=== PATIENT | female | born 1995 | race African-American/Black ===

== ENCOUNTER 2018-07-14 14:28 | Emergency (ER) | payer SELFPAY ==
[~2018-07-14] VITALS: Ht 160 cm; Wt 59.0 kg
[2018-07-14 15:28] VITALS: BP 124/62
--- NOTE | 2018-07-14 15:51 | PHYS DOC ---
Past Medical History Past Medical History: Ovarian Cyst Past Surgical History: Other Additional Past Surgical Histo: OVARIAN CYST Alcohol Use: None Drug Use: None Adult General Chief Complaint Chief Complaint: ABDOMINAL PAIN HPI HPI Patient is a 23 year old female with no significant medical history who presents to the ED today complaining of 7 out of 10 bilateral intermittent pelvic pain that has been going on for 2 weeks. She is also complaining of vaginal spotting for 2 weeks. Patient denies anything exacerbating or relieving her pain. She states she has history of ovarian cyst. Patient denies any chance she is , denies being on any medications especially hormones. Denies any concerns for STDs. Review of Systems Review of Systems Constitutional: Denies fever or chills [] Eyes: Denies change in visual acuity, redness, or eye pain [] HENT: Denies nasal congestion or sore throat [] Respiratory: Denies cough or shortness of breath [] Cardiovascular: No additional information not addressed in HPI [] GI: Reports pelvic pain with vaginal spotting, denies nausea, vomiting, bloody stools or diarrhea [] : Denies dysuria or hematuria [] Musculoskeletal: Denies back pain or joint pain [] Integument: Denies rash or skin lesions [] Neurologic: Denies headache, focal weakness or sensory changes [] All other systems were reviewed and found to be within normal limits, except as documented in this note. Allergies Allergies Allergies Coded Allergies Type Severity Reaction Last Updated Verified No Known Drug Allergies 07/14/18 No Physical Exam Physical Exam Constitutional: Well developed, well nourished, no acute distress, non-toxic appearance. [] HENT: Normocephalic, atraumatic, bilateral external ears normal, oropharynx moist, no oral exudates, nose normal. [] Eyes: PERRLA, EOMI, conjunctiva normal, no discharge. [] Neck: Normal range of motion, no tenderness, supple, no stridor. [] Cardiovascular:Heart rate regular rhythm, no murmur [] Lungs & Thorax: Bilateral breath sounds clear to auscultation [] Abdomen: Bowel sounds normal, soft, no tenderness, no masses, no pulsatile masses. [] Pelvic exam External pelvic appears normal, cervix is visualized, closed, no CMT, trace amount of bright red blood in the vaginal vault. No adnexal tenderness. Skin: Warm, dry, no erythema, no rash. [] Back: No tenderness, no CVA tenderness. [] Extremities: No tenderness, no cyanosis, no clubbing, ROM intact, no edema. [] Neurologic: Alert and oriented X 3, normal motor function, normal sensory function, no focal deficits noted. [] Psychologic: Affect normal, judgement normal, mood normal. [] Current Patient Data Vital Signs Vital Signs Date Time Temp Pulse Resp B/P (MAP) Pulse Ox O2 Delivery O2 Flow Rate FiO2 07/14/18 15:11 98.1 64 16 119/67 (84) 100 Room Air 98.1 Lab Values Laboratory Tests Test 07/14/18 15:13 07/14/18 15:17 07/14/18 15:53 Urine Collection Type Void Urine Color Yellow Urine Clarity Clear Urine pH 8.0 Urine Specific Dexter 1.020 Urine Protein Negative mg/dL (NEG-TRACE) Urine Glucose (UA) Negative mg/dL (NEG) Urine Ketones (Stick) Negative mg/dL (NEG) Urine Blood Large (NEG) Urine Nitrite Negative (NEG) Urine Bilirubin Negative (NEG) Urine Urobilinogen Dipstick 0.2 mg/dL (0.2 mg/dL) Urine Leukocyte Esterase Moderate (NEG) Urine RBC 6-10 /HPF (0-2) Urine WBC 11-20 /HPF (0-4) Urine Squamous Epithelial Cells Many /LPF Urine Bacteria Many /HPF (0-FEW) Urine Mucus Marked /LPF Urine Opiates Screen Neg (NEG) Urine Methadone Screen Neg (NEG) Urine Barbiturates Neg (NEG) Urine Phencyclidine Screen Neg (NEG) Urine Amphetamine/Methamphetamine Neg (NEG) Urine Benzodiazepines Screen Neg (NEG) Urine Cocaine Screen Neg (NEG) Urine Cannabinoids Screen Neg (NEG) Urine Ethyl Alcohol Neg (NEG) POC Urine HCG, Qualitative Hcg negative (Negative) White Blood Count 5.2 x10^3/uL (4.0-11.0) Red Blood Count 4.48 x10^6/uL (3.50-5.40) Hemoglobin 9.1 g/dL (12.0-15.5) L Hematocrit 29.7 % (36.0-47.0) L Mean Corpuscular Volume 66 fL (79-100) L Mean Corpuscular Hemoglobin 20 pg (25-35) L Mean Corpuscular Hemoglobin Concent 31 g/dL (31-37) Red Cell Distribution Width 20.1 % (11.5-14.5) H Platelet Count 254 x10^3/uL (140-400) Neutrophils (%) (Auto) 30 % (31-73) L Lymphocytes (%) (Auto) 62 % (24-48) H Monocytes (%) (Auto) 6 % (0-9) Eosinophils (%) (Auto) 2 % (0-3) Basophils (%) (Auto) 0 % (0-3) Neutrophils # (Auto) 1.6 x10^3uL (1.8-7.7) L Lymphocytes # (Auto) 3.2 x10^3/uL (1.0-4.8) Monocytes # (Auto) 0.3 x10^3/uL (0.0-1.1) Eosinophils # (Auto) 0.1 x10^3/uL (0.0-0.7) Basophils # (Auto) 0.0 x10^3/uL (0.0-0.2) Segmented Neutrophils % 42 % (35-66) Band Neutrophils % 4 % (0-9) Lymphocytes % 37 % (24-48) Atypical Lymphocytes % (Manual) 2 % (0-0) H Monocytes % 12 % (0-10) H Eosinophils % 3 % (0-5) Platelet Estimate Adequate (ADEQUATE) Polychromasia Slight Hypochromasia Present Anisocytosis Slight Microcytosis Mod Ovalocytes Present Alphonso Cells Few Schistocytes Few Sodium Level 141 mmol/L (136-145) Potassium Level 3.6 mmol/L (3.5-5.1) Chloride Level 105 mmol/L (98-107) Carbon Dioxide Level 26 mmol/L (21-32) Anion Gap 10 (6-14) Blood Urea Nitrogen 5 mg/dL (7-20) L Creatinine 0.7 mg/dL (0.6-1.0) Estimated GFR (Cockcroft-Gault) 127.8 BUN/Creatinine Ratio 7 (6-20) Glucose Level 73 mg/dL (70-99) Calcium Level 9.4 mg/dL (8.5-10.1) Total Bilirubin 0.4 mg/dL (0.2-1.0) Aspartate Amino Transferase (AST) 22 U/L (15-37) Alanine Aminotransferase (ALT) 14 U/L (14-59) Alkaline Phosphatase 61 U/L (46-116) Total Protein 8.5 g/dL (6.4-8.2) H Albumin 3.9 g/dL (3.4-5.0) Albumin/Globulin Ratio 0.8 (1.0-1.7) L Ethyl Alcohol Level < 10 mg/dL (0-10) Laboratory Tests 07/14/18 15:53 Laboratory Tests 07/14/18 15:53 Microbiology 07/14/18 Wet Prep - Final, Complete EKG EKG [] Radiology/Procedures Radiology/Procedures [] Course & Med Decision Making Course & Med Decision Making Pertinent Labs and Imaging studies reviewed. (See chart for details) This is a 23-year-old female patient presenting to the ED today with vaginal spotting on pelvic pain for 2 weeks. Negative urine hCG, urine analysis is noted for UTI-discharged with Bactrim. CBC with normal WBC, hemoglobin 9.1, hematocrit 29.7. Patient states she has known history of anemia. She does not know her baseline hemoglobin. She is a symptomatic. I requested she starts taking [id number] vitamins to boost her hemoglobin. Also requested she starts increasing her dietary iron intake through foods like meats. Wet prep noted for BV. Discharged with Flagyl. Ultrasound noted for right hematologic cyst. Requested patient follow-up with an SAFETY RELIEF VALVE TECHNICIAN in 6 weeks to make sure the cyst clears out and also follow-up sooner for her dysfunctional uterine bleeding. Provided an SAFETY RELIEF VALVE TECHNICIAN. Discharge in stable condition. She was provided return precautions. Dragon Disclaimer Dragon Disclaimer This electronic medical record was generated, in whole or in part, using a voice recognition dictation system. Departure Departure Impression: Primary Impression: Dysfunctional uterine bleeding Additional Impressions: Anemia UTI (urinary tract infection) Bacterial vaginosis Disposition: 01 HOME, SELF-CARE Condition: STABLE Referrals: NO PCP (PCP) TOM PATE Jr, MD Follow up in 1-2 weeks Patient Instructions: Bacterial Vaginosis, [id number], Urinary Tract Infection, Uterine Bleeding, Dysfunctional Additional Instructions: You were evaluated the emergency room for vaginal bleeding and pelvic pain. Please establish care with an SAFETY RELIEF VALVE TECHNICIAN and follow-up for this. You have a cyst on your right ovary. This needs to be followed up with an SAFETY RELIEF VALVE TECHNICIAN to make sure it clears out. Your iron levels are low, consider taking vitamins, consider increasing your dietary iron intake through meats and iron rich foods. You also have urinary tract infection, ensure you complete the antibiotic prescribed. Complete your antibiotics for bacterial vaginosis. Please come back to the ED at any point your bleeding gets worse especially if you start soaking more than 1 feminine pad an hour or your pelvic pain worsens. Scripts Pnv Cmb#95/Ferrous Fumarate/Fa ( TABLET) 1 Each Tablet 1 TAB PO DAILY, #90 TAB 3 Refills Prov: JOSIE PARIKH APRN 07/14/18 Fluconazole (DIFLUCAN) 150 Mg Tablet 1 TAB PO ONCE, #1 TAB 1 Refill Take one tablet today and repeat one tablet in one week Prov: JOSIE PARIKH APRN 07/14/18 Sulfamethoxazole/Trimethoprim (BACTRIM DS TABLET) 1 Each Tablet 1 TAB PO BID, #6 TAB Prov: JOSIE PARIKH APRN 07/14/18 Metronidazole (FLAGYL) 500 Mg Tablet 1 TAB PO BID, #14 TAB Prov: JOSIE PARIKH APRN 07/14/18 Problem Qualifiers Additional Impressions: Anemia Anemia type: unspecified type Qualified Codes: D64.9 - Anemia, unspecified UTI (urinary tract infection) Urinary tract infection type: site unspecified Hematuria presence: without hematuria Qualified Codes: N39.0 - Urinary tract infection, site not specified JOSIE PARIKH APRN Jul 14, 2018 15:51
[2018-07-14 15:52] LABS: BILIRUBIN,URINE NEGATIVE (NEG); CLARITY,URINE CLEAR; COLOR,URINE YELLOW; NITRITE,URINE NEGATIVE (NEG); PROTEIN,URINE NEGATIVE (NEG-TRACE); UROBILINOGEN,URINE 0.2 mg/dL (0.2 mg/dL)
[2018-07-14 15:56] LABS: BACTERIA,URINE MANY /HPF (0-FEW); SQUAMOUS EPITHELIAL CELL,UR MANY /LPF
[2018-07-14 16:01] LABS: BASO % 0 % (0-3); EOS # 0.1 x10^3/uL (0.0-0.7); EOS % 2 % (0-3); HEMATOCRIT 29.7 % (36.0-47.0); HEMOGLOBIN 9.1 g/dL (12.0-15.5); LYMPH # 3.2 x10^3/uL (1.0-4.8); LYMPH % 62 % (24-48); MEAN CORPUSCULAR HEMOGLOBIN 20 pg (25-35); MEAN CORPUSCULAR HGB CONC 31 g/dL (31-37); MEAN CORPUSCULAR VOLUME 66 fL (79-100); MONO # 0.3 x10^3/uL (0.0-1.1); MONO % 6 % (0-9); NEUT # 1.6 x10^3uL (1.8-7.7); NEUT % 30 % (31-73); PLATELET COUNT 254 x10^3/uL (140-400); RED BLOOD COUNT 4.48 x10^6/uL (3.50-5.40); RED CELL DISTRIBUTION WIDTH 20.1 % (11.5-14.5); WHITE BLOOD COUNT 5.2 x10^3/uL (4.0-11.0)
[2018-07-14 16:06] LABS: CALCIUM 9.4 mg/dL (8.5-10.1); CREATININE 0.7 mg/dL (0.6-1.0); GFR 127.8; POTASSIUM 3.6 mmol/L (3.5-5.1)
[2018-07-14 16:07] LABS: BARBITURATES NEG (NEG); BENZODIAZEPINES NEG (NEG); CANNABINOIDS NEG (NEG); COCAINE NEG (NEG); METHADONE NEG (NEG); OPIATES NEG (NEG); PHENCYCLIDINE NEG (NEG)
[2018-07-14 16:08] LABS: AMPHETAMINE/METHAMPHETAMINE NEG (NEG)
[2018-07-14 16:12] LABS: ALBUMIN 3.9 g/dL (3.4-5.0); ALBUMIN/GLOBULIN RATIO 0.8 (1.0-1.7); TOTAL BILIRUBIN 0.4 mg/dL (0.2-1.0); TOTAL PROTEIN 8.5 g/dL (6.4-8.2)
[2018-07-14 16:27] LABS: % ATYL 2 % (0-0); % BANDS 4 % (0-9); % EOS 3 % (0-5); % MONOS 12 % (0-10); PLT ESTIMATE ADEQUATE (ADEQUATE)
[2018-07-14 16:28] LABS: ANISOCYTOSIS SLIGHT; HYPOCHROMIA PRESENT; MICROCYTOSIS MOD; POLYCHROMASIA SLIGHT
[2018-07-14 16:29] LABS: BURR CELLS FEW; OVALOCYTES PRESENT; SCHISTOCYTES FEW
--- NOTE | 2018-07-14 16:30 | RAD ---
EXAM: Ultrasound pelvis INDICATION: Vag bleeding. Last menstrual period was 06/20/2018. COMPARISON: None available. TECHNIQUE: Transabdominal and endovaginal sonography was performed FINDINGS: The uterus measures 5.3 x 4.2 x 7.1 cm. The endometrium measures 1.3 cm on endovaginal images. No definite gestational sac is identified. There is no focal myometrial abnormality. The right ovary measures 5.1 x 3.4 x 3 cm on endovaginal images. A 1.9 x 2.3 x 3 cm complex right adnexal cyst is seen with linear internal echoes, possibly hemorrhagic cyst. The left ovary measures 4.5 x 1.9 x 1.8 cm. cm on endovaginal images. Flow is seen within both ovaries. No definite left adnexal mass is seen. There is no free fluid. IMPRESSION: 1. No intrauterine gestation is identified by ultrasound. 2. Thickening of the endometrium is seen. This can be correlated with phase of menstrual cycle. 3. 3 cm right adnexal cystic structure with internal echoes, possibly hemorrhagic cyst. 4. Flow is seen to both ovaries. Electronically signed by: Francisco Javier Mendez MD (07/14/2018 4:27 PM) [facility]
[2018-07-14 16:36] LABS: % LYMPHS 37 % (24-48); % SEGS 42 % (35-66)
[2018-07-14] MEDS ORDERED: FLUC150T PO (17:04)
[2018-07-14] MEDS ORDERED: PNV1TABL25 PO (17:04)
[2018-07-14] MEDS ORDERED: METR500T PO (17:04)
[2018-07-14] MEDS ORDERED: SULF1TAB24 PO (17:04)
[2018-07-15 14:18] LABS: GC PROBE Negative (Negative)
== END 2018-07-14 17:42 | disposition home or self-care (01) ==
LOC: ER 14:28
DX: O23.41 Unspecified infection of urinary tract in pregnancy, first trimester (principal); O23.591 Infection of other part of genital tract in pregnancy, first trimester; O99.011 Anemia complicating pregnancy, first trimester; B96.89 Other specified bacterial agents as the cause of diseases classified elsewhere; O34.81 Maternal care for other abnormalities of pelvic organs, first trimester; N83.201 Unspecified ovarian cyst, right side; O20.8 Other hemorrhage in early pregnancy; Z3A.01 Less than 8 weeks gestation of pregnancy
CPT/HCPCS: 36415; 76801; 76817; 80053; 80307; 81001; 81025; 85007; 85025; 87086; 87491; 87591; 99284; G0480; Q0111